=== PATIENT | male | born 1990 | race American Indian/Alaskan Native ===

== ENCOUNTER 2019-02-17 14:29 | Emergency (ER) | payer OTHER ==
[2019-02-17 14:45] VITALS: RESP 18; TEMP 98.5; BMI 32.5
--- NOTE | 2019-02-17 16:59 | ED PDOC ---
Arrival/HPI - General Chief Complaint: Upper Extremity Problem/Injury Time Seen by Provider: 02/17/19 16:09 Historian: Patient - History of Present Illness Narrative History of Present Illness (Text): 02/17/19 16:58 29 y.o male with no significant past medical history, who presents to the emergency department complaining of right shoulder pain that started a day ago. Patient states pain is worsen with movement and exacerbates with heavy lifting. 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 Patient denies any chest pain and shortness of breath. Time/Duration: 24 hours Symptom Onset: Gradual Symptom Course: Unchanged Context: Work Past Medical History - Provider Review Nursing Documentation Reviewed: Yes - Infectious Disease Hx of Infectious Diseases: None - Cardiac Hx Cardiac Disorders: No - Pulmonary Hx Asthma: Yes - Neurological Hx Neurological Disorder: No - Renal Hx Renal Disorder: No - Hematological/Oncological Hx Blood Disorders: No - Integumentary Hx Dermatological Disorder: No - Psychiatric Hx Substance Use: No - Anesthesia Hx Anesthesia: No Family/Social History - Physician Review Nursing Documentation Reviewed: Yes Family/Social History: Unknown Family HX Smoking Status: Unknown If Ever Smoked Hx Alcohol Use: No Hx Substance Use: No Allergies/Home Meds Allergies/Adverse Reactions: Allergies No Known Allergies Allergy (Unverified 02/17/19 16:24) Review of Systems - Review of Systems Eyes: absent: Vision Changes ENT: absent: Hearing Changes Respiratory: absent: SOB Cardiovascular: absent: Chest Pain, Palpitations, Edema, Calf Pain, SANCHEZ, Orthopnea, Syncope Gastrointestinal: absent: Abdominal Pain, Constipation, Diarrhea, Nausea, Vomiting Musculoskeletal: Arthralgias, Other (Right shoulder pain. ) Skin: absent: Rash Neurological: absent: Headache, Dizziness, Focal Weakness, Gait Changes Physical Exam Vital Signs Reviewed: Yes Vital Signs Temp Pulse Resp BP Pulse Ox 02/17/19 14:44 98.5 F 67 18 120/79 98 Temperature: Afebrile Blood Pressure: Normal Pulse: Regular Respiratory Rate: Normal Appearance: Positive for: Well-Appearing, Non-Toxic, Comfortable Pain Distress: None Mental Status: Positive for: Alert and Oriented X 3 - Systems Exam Head: Present: Atraumatic, Normocephalic Pupils: Present: PERRL Extroacular Muscles: Present: EOMI Conjunctiva: Present: Normal Mouth: Present: Moist Mucous Membranes Neck: Present: Normal Range of Motion Respiratory/Chest: Present: Clear to Auscultation, Good Air Exchange. No: Respiratory Distress Cardiovascular: Present: Regular Rate and Rhythm. No: Murmurs Abdomen: No: Tenderness, Distention, Peritoneal Signs Upper Extremity: Present: Normal ROM (normal passive ROM), NORMAL PULSES, Tenderness, Neurovascularly Intact, Other (Right shoulder pain with external rotation. Pin point tenderness to superior aspect of R shoulder). No: Edema, Swelling, Erythema, Temperature Abnormalties, Deformity Neurological: Present: GCS=15, CN II-XII Intact, Speech Normal, Motor Func Grossly Intact, Normal Sensory Function, Gait Normal Skin: Present: Warm, Dry, Normal Color. No: Rashes Psychiatric: Present: Alert, Oriented x 3, Normal Concentration Medical Decision Making ED Course and Treatment: 02/17/19 17:22 Impression: 29 y.o male who present to the emergency department complaining of right shoulder pain. Plan: -- Ketorolac -- Shoulder right x-ray -- Reassess and disposition Prior Visits: Notes and results from previous visits were reviewed. Progress Notes: 02/17/19 18:31 IMPRESSION: No acute fracture or dislocation. 02/17/19 18:43 Pain improved after toradol. Now has full ROM. - RAD Interpretation Radiology Orders: 02/17/19 16:24 SHOULDER RIGHT [RAD] Stat - Medication Orders Current Medication Orders: Discontinued Medications Ketorolac Tromethamine (Toradol) 60 mg IM STAT STA Stop: 02/17/19 16:53 - Scribe Statement The provider has reviewed the documentation as recorded by the Scribperry Hogan All medical record entries made by the Scribe were at my direction and personally dictated by me. I have reviewed the chart and agree that the record accurately reflects my personal performance of the history, physical exam, medical decision making, and the department course for this patient. I have also personally directed, reviewed, and agree with the discharge instructions and disposition. Disposition/Present on Arrival - Present on Arrival Any Indicators Present on Arrival: No History of DVT/PE: No History of Uncontrolled Diabetes: No Urinary Catheter: No History of Decub. Ulcer: No History Surgical Site Infection Following: None - Disposition Have Diagnosis and Disposition been Completed?: Yes Diagnosis: Shoulder strain Disposition: HOME/ ROUTINE Disposition Time: 18:31 Patient Plan: Discharge Patient Problems: Current Active Problems Problem Status Onset Shoulder strain Acute Condition: GOOD Discharge Instructions (ExitCare): Shoulder Sprain, Muscle Strain (DC) Additional Instructions: Motrin for pain. Follow-up with PMD within 2 days. Return to ED if condition worsens. Referrals: Gaurav Hathaway MD [Staff Provider] - Follow up with primary Forms: [facility] (Greek), WORK NOTE
--- NOTE | 2019-02-17 18:29 | RAD ---
Date of service: 02/17/2019 PROCEDURE: Radiographs of the Right Shoulder HISTORY: Right shoulder pain COMPARISON: No prior. TECHNIQUE: 3 views obtained. FINDINGS: BONES: Normal. No fracture. JOINTS: Normal. Glenohumeral and acromioclavicular joints preserved. No osteoarthritis. SOFT TISSUES: Normal. OTHER FINDINGS: None. IMPRESSION: No acute fracture or dislocation.
[2019-02-17 19:10] VITALS: BP 132/76; PULSE 72; O2SAT 99
== END 2019-02-17 19:00 | disposition home or self-care (01) ==
LOC: ED 14:29
DX: S46.911A Strain of unspecified muscle, fascia and tendon at shoulder and upper arm level, right arm, initial encounter (principal); X58.XXXA Exposure to other specified factors, initial encounter
CPT/HCPCS: 73030; 96372; 99282; J1885